=== PATIENT | male | born 1990 | race Caucasian/White ===

== ENCOUNTER 2017-10-07 16:41 | Emergency (ER) | payer OTHER ==
[2017-10-07 16:52] VITALS: BP 128/84
--- NOTE | 2017-10-07 18:22 | ED Physician Documentation ---
PD HPI HEENT - Stated complaint Stated Complaint: COLD SORE - Chief complaint Chief Complaint: General - History obtained from History obtained from: Patient - History of Present Illness Timing - onset: Today Timing - details: Still present Location: Other (upper lip) Associated symptoms: No: Fever, Facial swelling Similar symptoms before: No diagnosis (He reports history of a sore on his lip 2 or 3 years ago.) - Additional information Additional information: The patient is an otherwise healthy 26-year-old male who presents with a slight bump on his upper lip that he is concerned might be a cold sore. The lesion first appeared this morning. He denies any fever, facial swelling, or sore throat. He is concerned about the possibility of a herpes simplex infection, because he does not want to infect his family members, including his toddler. He reports having a sore on his lip 2 or 3 years ago, but is uncertain whether it was an ulceration. He reports that his sister has a history of cold sores. His does not have a history of cold sores. Review of Systems Constitutional: denies: Fever Eyes: denies: Irritation Ears: denies: Ear pain Nose: denies: Congestion Throat: denies: Sore throat Respiratory: denies: Dyspnea, Cough GI: denies: Nausea, Vomiting Skin: denies: Rash Neurologic: denies: Headache PD PAST MEDICAL HISTORY - Past Medical History Respiratory: None Neuro: None Endocrine/Autoimmune: None - Present Medications Home Medications: Ambulatory Orders Medication Instructions Recorded Confirmed No Known Home Medications [No 10/07/17 10/07/17 Known Home Medications] - Allergies Allergies/Adverse Reactions: Allergies Allergy/AdvReac Type Severity Reaction Status Date / Time No Known Drug Allergies Allergy Verified 10/07/17 16:52 - Living Situation Living Situation: reports: With family - Social History Does the pt smoke?: No - Immunizations Immunizations are current?: Yes PD ED PE NORMAL - Vitals Vital signs reviewed: Yes (normal) - General General: Alert and oriented X 3, No acute distress, Well developed/nourished - HEENT HEENT: Atraumatic, Moist mucous membranes, Pharynx benign, Other (There is a small erythetous papule on the right side of the upper lip. It is mildly tender to palpation. There is no ulceration currently.) - Neck Neck: No adenopathy - Cardiac Cardiac: RRR - Respiratory Respiratory: No respiratory distress - Derm Derm: No rash - Neuro Neuro: Alert and oriented X 3, Normal speech Results - Vitals Vitals: Oxygen O2 Source Room air PD MEDICAL DECISION MAKING - ED course Complexity details: considered differential, d/w patient, d/w family ED course: The patient's presentation is consistent with the possibility of the early herpetic eruption on his upper lip. It is not ulcerated, and the diagnosis is not certain at this time. I discussed with him and his the diagnostic uncertainty, as well as precautions to undertake with regard to potential transmission. Departure - Departure Disposition: Home, Self Care Clinical Impression: Blister of lip Condition: Stable Instructions: ED Blister, ED Herpes Simplex Virus Type 1 Follow-Up: [facility]ACIN[facility] [Provider Group] Comments: Avoid contact between your lips and the lips of your child until the blemish on your lip has resolved. If it blisters it is likely to be herpes simplex. Follow up with your primary physician, or return to the emergency department, if increasing pain or swelling, or otherwise worsening symptoms. Discharge Date/Time: 10/07/17 18:24
== END 2017-10-07 18:24 | disposition home or self-care (01) ==
LOC: ED 16:41
DX: S00.521A Blister (nonthermal) of lip, initial encounter (principal)
CPT/HCPCS: 99281; 99282

== ENCOUNTER 2017-11-05 09:10 | Emergency (ER) | payer OTHER ==
[2017-11-05 09:20] VITALS: BP 123/78
--- NOTE | 2017-11-05 09:46 | XRAY Preliminary Report ---
Exam: XR FOOT 3 VIEW LT IMPRESSION: 1. Soft tissue swelling about the forefoot. 2. No fracture. [facility] SITE ID: [id number]
--- NOTE | 2017-11-05 09:46 | XRAY Report ---
EXAM: LEFT FOOT RADIOGRAPHY EXAM DATE: 11/05/2017 09:39 AM. CLINICAL HISTORY: Injury. COMPARISON: None. TECHNIQUE: 3 views. FINDINGS: Bones: Normal. No fractures or bone lesions. Joints: Normal. No subluxations. Soft Tissues: Soft tissue swelling about the forefoot. IMPRESSION: 1. Soft tissue swelling about the forefoot. 2. No fracture. [facility] Referring Provider Line: [phone] SITE ID: [id number]
--- NOTE | 2017-11-05 10:40 | ED Physician Documentation ---
History of Present Illness - Stated complaint Stated Complaint: L FOOT INJ - Chief complaint Chief Complaint: Ext Problem - Additonal information Additional information: hx from pt 27 male [place] dependent twisted L foot snowboarding midfoot swelling and pain no other injury Review of Systems Musculoskeletal: reports: Pain with weight bearing PD PAST MEDICAL HISTORY - Past Medical History Respiratory: None Neuro: None Endocrine/Autoimmune: None - Past Surgical History Past Surgical History: No - Present Medications Home Medications: Ambulatory Orders Medication Instructions Recorded Confirmed No Known Home Medications [No 10/07/17 10/07/17 Known Home Medications] - Allergies Allergies/Adverse Reactions: Allergies Allergy/AdvReac Type Severity Reaction Status Date / Time No Known Drug Allergies Allergy Verified 10/07/17 16:52 - Social History Does the pt smoke?: No Smoking Status: Never smoker Does the pt drink ETOH?: No Does the pt have substance abuse?: No - Immunizations Immunizations are current?: Yes PD ED PE NORMAL - Vitals Vital signs reviewed: Yes - Extremities Extremities: Other (L foot with mod mid foot swelling and TTP over base 1-3 MT, MSV intact) Results - Vitals Vitals: Vital Signs - 24 hr 11/05/17 09:17 Temperature 36.3 C L Heart Rate 61 Respiratory 18 Rate Blood Pressure 123/78 O2 Saturation 98 Oxygen O2 Source Room air - Rads (name of study) foot Radiology: See rad report (per rad no fx or dislcoation, per my read slightly widened midfoot spacing concerning for LisFranc) Departure - Departure Disposition: 01 Home, Self Care Clinical Impression: Lisfranc's sprain Qualifiers: Encounter type: initial encounter Laterality: left Qualified Code(s): S93.622A - Sprain of tarsometatarsal ligament of left foot, initial encounter Condition: Good Instructions: Lisfranc Joint Injury About, Lisfranc Joint Injury Tx Follow-Up: [facility] [Provider Group] [email or web address] [Provider Group] Comments: The xray shows no broken bones But I am concerned you have injured ligaments in your mid foot - called a LisFranc injury You may need to have a MRI to determine if you have suffered this type of injury It is OK for you to go home from the ER - motrin for pain, ice elevation and an KEL wrap for swelling, and using crutches no weight bearing at all. [place] or at [facility] either is fine) for further evaluation and consideration of a MRI Forms: Activity restrictions
== END 2017-11-05 10:54 | disposition home or self-care (01) ==
LOC: ED 09:10
DX: S93.622A Sprain of tarsometatarsal ligament of left foot, initial encounter (principal); X50.1XXA Overexertion from prolonged static or awkward postures, initial encounter; Y93.23 Activity, snow (alpine) (downhill) skiing, snowboarding, sledding, tobogganing and snow tubing; Y92.89 Other specified places as the place of occurrence of the external cause
CPT/HCPCS: 99283